=== PATIENT | female | born 1965 | race Caucasian/White ===

== ENCOUNTER 2017-08-24 19:06 | Emergency (ER) | payer SELFPAY ==
[~2017-08-24] VITALS: Ht 157.5 cm; Wt 92.7 kg
[2017-08-24 19:15] VITALS: Ht 157.5 cm; Wt 92.7 kg
[2017-08-24] MEDS ORDERED: HYDROCHLOROTHIA50 MG PO (19:17)
[2017-08-24 21:11] LABS: BASOPHILS 0.3 % (0-2); EOSINOPHILS 1.9 % (0-7); HEMATOCRIT 38.5 % (36.0-48.0); HEMOGLOBIN 12.9 g/dL (12-16); IMMATURE GRANULOCYTES 0.3 % (0-5); LYMPHOCYTES 20.4 % (15-50); MCH 30.8 pg (26.0-34.0); MCHC 33.5 g/dL (31.0-37.0); MCV 91.9 fL (80.0-100.0); MEAN PLATELET VOLUME 9.5 fL (7.4-10.4); MONOCYTES 5.7 % (2-11); NEUTROPHILS 71.4 % (40-80); PLATELET COUNT 341 10x3/uL (130-400); RBC 4.19 10x6/uL (4.00-5.40); RDW 12.7 % (11.5-14.5); WBC 11.8 10x3/uL (4.8-10.8)
[2017-08-24 21:29] LABS: APPEARANCE CLEAR (CLEAR); BILIRUBIN NEGATIVE (NEGATIVE); COLOR YELLOW (YELLOW); GLUCOSE NEGATIVE (NEGATIVE); KETONE NEGATIVE (NEGATIVE); NITRITE NEGATIVE (NEGATIVE); PROTEIN NEGATIVE (NEGATIVE); UROBILINOGEN NORMAL (NORMAL)
[2017-08-24 21:32] LABS: ALBUMIN 3.9 g/dL (3.4-5.0); ALKALINE PHOSPHATASE 94 U/L (46-116); ALT (SGPT) 20 U/L (10-68); BILIRUBIN - TOTAL 0.33 mg/dL (0.2-1.3); CALC OSMOLALITY 275 mosm/kg (275-300); CALCIUM 9.1 mg/dL (8.5-10.1); CARBON DIOXIDE 27.6 mmol/L (21.0-32.0); CHLORIDE - SERUM 100 mmol/L (98-107); CREATININE - SERUM 0.9 mg/dL (0.6-1.3); GLUCOSE 117 mg/dL (74-106); POTASSIUM - SERUM 3.4 mmol/L (3.5-5.1); PROTEIN - SERUM 8.1 g/dL (6.4-8.2); SODIUM 138 mmol/L (136-145); UREA NITROGEN 10 mg/dL (7-18); eGFR NON AFRICAN AMERICAN 69 mL/min (90-120)
[2017-08-24 21:43] LABS: CKMB 1.3 U/L (0.0-3.6); CREATINE KINASE 176 UL (21-215)
[2017-08-24 21:45] LABS: TROPONIN-I < 0.017 ng/mL (0.000-0.060)
[2017-08-24] MEDS ORDERED: NORVASC5 MG PO (22:03)
[2017-08-25 01:12] VITALS: BP 157/88
== END 2017-08-25 01:14 | disposition home or self-care (01) ==
LOC: D.ER 19:06
PROVIDERS: Emergency Medicine
DX: I10 Essential (primary) hypertension (principal); R20.2 Paresthesia of skin